=== PATIENT | female | born 1965 | race African-American/Black ===

== ENCOUNTER 2024-01-13 00:43 | Emergency (ER) | payer OTHER ==
[~2024-01-13] VITALS: Ht 170.2 cm; Wt 90.0 kg
[2024-01-13 00:58] VITALS: O2SAT 99
[2024-01-13 01:31] LABS: BASOPHILS % 0.6 % (0.0-2.0); EOSINOPHILS % 2.6 % (0.0-5.0); HEMOGLOBIN. 11.3 g/dL (12.0-16.0); LYMPHOCYTES % 40.5 % (20.0-50.0); MEAN CORPUSCULAR HEMOGLOBIN 30.5 pg (28.0-32.0); MEAN CORPUSCULAR HGB CONC 33.3 g/dL (31.0-37.0); MEAN CORPUSCULAR VOLUME 91.5 fL (81.0-99.0); MEAN PLATELET VOLUME 8.2 fl (7.4-10.4); MONOCYTES % 6.7 % (2.0-8.0); NEUTROPHILS % 49.6 % (40.0-76.0); PLATELET 243 x1000/uL (130-400); RED BLOOD CELL COUNT 3.72 mill/uL (4.2-5.4); RED CELL DISTRIBUTION WIDTH 14.1 % (11.6-14.6); WHITE BLOOD COUNT 6.2 x1000/uL (4.5-11.0)
[2024-01-13 01:44] LABS: ALANINE AMINOTRANSFERASE 22 IU/L (10-49); ASPARTATE AMINOTRANSFERASE 31 IU/L (<34); BILIRUBIN TOTAL 0.4 mg/dL (0.1-1.0); CALCIUM 9.4 mg/dL (8.7-10.4); CARBON DIOXIDE 28 mEq/L (21-32); CHLORIDE 108 mEq/L (98-107); GLUCOSE 118 mg/dL (70-105); POTASSIUM 3.4 mEq/L (3.5-5.1); PROTEIN TOTAL 8.4 g/dL (6.0-8.3); SODIUM 141 mEq/L (136-145); UREA NITROGEN BLOOD 12 mg/dL (9-23)
[2024-01-13] MEDS ORDERED: POTA-204 MT (02:29)
[2024-01-13] MEDS ORDERED: AMLO2.5T45 MT (02:29)
[2024-01-13] MEDS: AMLODIPINE 2.5MG TABLET PO ONE (03:15)
[2024-01-13] MEDS: POTASSIUM CHLORIDE 20MEQ/PACKET PO NR (03:16)
[2024-01-13 03:30] VITALS: BP 159/69; PULSE 81; RESP 18; TEMP 98.1
== END 2024-01-13 03:40 | disposition home or self-care (01) ==
LOC: ER 00:43
DX: I10 Essential (primary) hypertension (principal); E87.6 Hypokalemia; Z88.5 Allergy status to narcotic agent
CPT/HCPCS: 36415; 80053; 85025; 93005; 99284